=== PATIENT | female | born 1965 | race African-American/Black ===

== ENCOUNTER 2021-03-01 11:45 | Emergency (ER) | payer MEDICAID ==
[~2021-03-01] VITALS: Ht 162.6 cm; Wt 78.0 kg
[2021-03-01 12:35] LABS: BASOPHILS % 0.8 % (0.0-2.0); CHLORIDE 106 mEq/L (98-107); EOSINOPHILS % 2.5 % (0.0-5.0); HEMATOCRIT. 38.4 % (36.0-48.0); LYMPHOCYTES % 39.2 % (20.0-50.0); MEAN CORPUSCULAR HEMOGLOBIN 27.1 pg (28.0-32.0); MEAN CORPUSCULAR VOLUME 79.8 fL (81.0-99.0); MEAN PLATELET VOLUME 8.5 fl (7.4-10.4); MONOCYTES % 6.6 % (2.0-8.0); NEUTROPHILS % 50.9 % (40.0-76.0); PLATELET 290 x1000/uL (130-400); RED BLOOD CELL COUNT 4.81 mill/uL (4.2-5.4); RED CELL DISTRIBUTION WIDTH 13.2 % (11.6-14.6)
[2021-03-01 12:48] LABS: CLARITY URINE CLEAR (CLEAR); COLOR URINE YELLOW (YELLOW); KETONES URINE NEGATIVE (NEGATIVE); LEUKOCYTE ESTERASE URINE NEGATIVE (NEGATIVE); NITRITE URINE NEGATIVE (NEGATIVE); OCCULT BLOOD URINE NEGATIVE (NEGATIVE); PROTEIN URINE NEGATIVE (NEGATIVE); SPECIFIC GRAVITY URINE 1.003 (1.005-1.030); UROBILINOGEN URINE 0.2 E.U./dL (0.2-1.0)
[2021-03-01 13:45] VITALS: BP 125/64
== END 2021-03-01 13:55 | disposition home or self-care (01) ==
LOC: ER 11:45
DX: R53.1 Weakness (principal); R41.89 Other symptoms and signs involving cognitive functions and awareness; T45.0X5A Adverse effect of antiallergic and antiemetic drugs, initial encounter; Y92.018 Other place in single-family (private) house as the place of occurrence of the external cause
CPT/HCPCS: 36415; 80053; 81003; 85025; 99283

== ENCOUNTER 2024-02-26 07:35 | Emergency (ER) | payer MEDICAID, OTHER ==
[~2024-02-26] VITALS: Ht 165.1 cm; Wt 77.0 kg
[2024-02-26 07:42] VITALS: O2SAT 99
[2024-02-26 08:07] LABS: HEMATOCRIT. 38.1 % (36.0-48.0); HEMOGLOBIN. 12.3 g/dL (12.0-16.0); MEAN CORPUSCULAR HEMOGLOBIN 26.4 pg (28.0-32.0); MEAN CORPUSCULAR HGB CONC 32.4 g/dL (31.0-37.0); MEAN CORPUSCULAR VOLUME 81.5 fL (81.0-99.0); MEAN PLATELET VOLUME 8.2 fl (7.4-10.4); MONOCYTES % 4.7 % (2.0-8.0); NEUTROPHILS % 70.3 % (40.0-76.0); PLATELET 270 x1000/uL (130-400); RED BLOOD CELL COUNT 4.68 mill/uL (4.2-5.4); RED CELL DISTRIBUTION WIDTH 13.8 % (11.6-14.6); WHITE BLOOD COUNT 7.4 x1000/uL (4.5-11.0)
[2024-02-26 08:12] LABS: CHLORIDE 103 mEq/L (98-107); POTASSIUM 3.6 mEq/L (3.5-5.1); SODIUM 140 mEq/L (136-145)
[2024-02-26 08:13] LABS: CARBON DIOXIDE 29 mEq/L (21-32)
[2024-02-26 08:14] LABS: CALCIUM 8.8 mg/dL (8.7-10.4)
[2024-02-26] MEDS ORDERED: MECLIZINE 25MG TABLET PO ONE (08:15)
[2024-02-26 08:18] LABS: CREATININE 0.7 mg/dL (0.6-1.0); GLUCOSE 126 mg/dL (70-105); UREA NITROGEN BLOOD 17 mg/dL (9-23)
[2024-02-26 08:23] LABS: TROPONIN I HIGH SENSITIVITY < 4 ng/L (3.0-34)
[2024-02-26 08:50] VITALS: BP 138/66; PULSE 73; RESP 14; TEMP 98.2
[2024-02-26] MEDS: ONDANSETRON HCL 4MG/2ML INJ IV STA (09:04)
[2024-02-26] MEDS: MECLIZINE 12.5MG TABLET PO NR (09:05)
[2024-02-26] MEDS: SODIUM CHLORIDE 0.9% 1,000 ML IV ONE (09:36)
[2024-02-26] MEDS ORDERED: ONDA4TAB50 PO (09:52)
[2024-02-26] MEDS ORDERED: MECL-299 PO (09:52)
== END 2024-02-26 10:58 | disposition home or self-care (01) ==
LOC: ER 07:35
DX: R42 Dizziness and giddiness (principal); E11.9 Type 2 diabetes mellitus without complications; Z98.890 Other specified postprocedural states
CPT/HCPCS: 80048; 85025; 84484; 36415; 93005; 96361; 96374; 99284; J8597; J2405; J7030; Z7610